=== PATIENT | male | born 1950 | race Caucasian/White ===

== ENCOUNTER 2021-04-03 16:51 | Observation (INO) | payer OTHER ==
[2021-04-03 17:53] VITALS: BMI 28.1
[2021-04-03] MEDS ORDERED: PNEUMOCOCCAL VACCINE 0.5 ML IMVAC ONE (18:00)
[2021-04-03] MEDS ORDERED: ACETAMINOPHEN 325 MG TABLET PO PRN (18:00)
[2021-04-03] MEDS ORDERED: ENOXAPARIN 40 MG/0.4 ML SQ SCH (18:00)
[2021-04-03] MEDS ORDERED: ONDANSETRON 4 MG (ODT) TAB PO PRN (18:00)
[2021-04-03] MEDS ORDERED: ONDANSETRON 4 MG/2 ML VIAL IV PRN (18:00)
[2021-04-03] MEDS ORDERED: POLYETHYL GLY 3350 17 GM/DOSE PO PRN (18:00)
[2021-04-03] MEDS ORDERED: DIPHENHYDRAMINE 25 MG TAB/CAP PO PRN (18:00)
[2021-04-03] MEDS ORDERED: INFLUENZA VACCINE (for 6+ mo) 0.5 ML DOSE IMVAC ONE (18:00)
[2021-04-03] MEDS ORDERED: LOPERAMIDE HCL 2 MG CAPSULE PO PRN (18:00)
[2021-04-03] MEDS ORDERED: NACHLORIDE 0.45% 1,000 ML IV SCH (18:00)
[2021-04-03 18:25] LABS: Absolute Lymphocytes (CBC) 2.4 K/uL (0.7-4.9); Hematocrit 41.6 % (39.6-49.0); Lymphocytes % 29.4 % (15.3-44.8); MPV 7.4 fL (7.6-11.3); RBC Red Blood Cell Count 4.49 M/uL (4.33-5.43)
[2021-04-03 18:43] LABS: Protime INR 0.99
[2021-04-03 19:11] LABS: Albumin 3.9 g/dL (3.4-5.0); Bilirubin Direct 0.1 mg/dL (0-0.2); Bilirubin Total 0.4 mg/dL (0.2-1.0); Phosphorus 3.4 mg/dL (2.5-4.9); Potassium 4.2 mmol/L (3.5-5.1); Protein, Total 7.3 g/dL (6.4-8.2); Thyroid Stimulating Hormone 1.53 uIU/mL (0.360-3.740)
--- NOTE | 2021-04-03 21:19 | RAD REPORT ---
EXAM DESCRIPTION: RAD - Chest Pa And Lat (2 Views) - 04/03/2021 9:00 pm CLINICAL HISTORY: abd pain Chest pain. COMPARISON: CHEST SINGLE VIEW dated 10/22/2008 FINDINGS: The lungs are clear. The heart is upper limit of normal in size. No displaced fractures. S mall hiatal hernia.
--- NOTE | 2021-04-03 21:19 | RAD REPORT ---
EXAM DESCRIPTION: CTAbdomen Pelvis W Contrast - 04/03/2021 9:06 pm CLINICAL HISTORY: Abdominal pain. abdominal pain COMPARISON: No comparisons TECHNIQUE: Biphasic CT imaging of the abdomen and pelvis was performed with 100 ml non-ionic IV cont rast. All CT scans are performed using dose optimization technique as appropriate and may include automated exposure control or mA/KV adjustment according to patient size. FINDINGS: The lung bases are clear.Small hiatal hernia. The liver, spleen, pancreas, adrenal glands and kidneys are within normal limits. Abdominal aortic en dograft noted. No bowel obstruction, free air, free fluid or abscess. The appendix is normal. Moderate stool is pre sent throughout the colon. No evidence of significant lymphadenopathy. Evidence of significant spinal canal stenosis at L4-5. IMPRESSION: Moderate retained stool throughout the colon. Significant spinal canal stenosis suspected at L4-5.
[2021-04-03] MEDS ORDERED: VENLAFAXINE HCL 75 MG TABLET PO SCH (22:00)
[2021-04-03] MEDS ORDERED: ZOLPIDEM TARTRATE 10 MG TABLET PO SCH (22:00)
[2021-04-03 22:11] LABS: Urine Appearance CLEAR (Clear); Urine Bilirubin NEGATIVE (Negative); Urine Blood NEGATIVE (Negative); Urine Color YELLOW (Yellow); Urine Glucose NEGATIVE (Negative); Urine Protein NEGATIVE (Negative); Urine pH 6.5 (5.0-7.0)
[2021-04-03 22:14] LABS: Urine Microscopic Reflex NO UMIC
[2021-04-04] MEDS: MORPHINE 15 MG IR TAB PO SCH ×2 (03:54)
[2021-04-04 05:44] LABS: Absolute Lymphocytes (CBC) 2.1 K/uL (0.7-4.9); Lymphocytes % 33.5 % (15.3-44.8); MPV 7.7 fL (7.6-11.3)
[2021-04-04 07:06] LABS: Potassium 3.8 mmol/L (3.5-5.1)
[2021-04-04] MEDS ORDERED: TRAZODONE 50 MG TABLET PO PRN (07:43)
[2021-04-04] MEDS ORDERED: lisinopriL 20 MG TAB PO SCH (09:00)
[2021-04-04 09:32] VITALS: BP 109/54; TEMP 97.2
[2021-04-04] MEDS ORDERED: INFLUENZA VACCINE (for 6+ mo) 0.5 ML DOSE IMVAC ONE (10:00)
[2021-04-04] MEDS ORDERED: PNEUMOCOCCAL VACCINE 0.5 ML IMVAC ONE (10:00)
--- NOTE | 2021-04-04 13:32 | P.DS ---
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 HE IS ON HEAVY NARCOTICS FROM THE PAIN DOCTOR AND TAKES DULCOLAX FOR CONSTIPATION. HE COMES WITH LOWER ABDOMEN PAIN THAT IS SEVERE. HE IS BENT OVER WHEN HE WALKS. HE HAS CONSTIPATION ON CT AND ALSO SEVERE L SPINE STENOSIS. HE DOES NOT WANT TO SEE NEUROSURGEON. HE WILL CONTINUE WITH PAIN DOCTORS. Vital Signs/Physical Exam: Temp Pulse Resp BP Pulse Ox 97.2 F 70 18 109/54 L 98 04/04/21 08:00 04/04/21 08:00 04/04/21 08:00 04/04/21 08:00 04/04/21 08:00 Laboratory Data at Discharge: WBC 6.20 K/uL (4.3-10.9) D 04/04/21 05:20 Hgb 12.9 g/dL (13.6-17.9) L 04/04/21 05:20 Hct 39.0 % (39.6-49.0) L 04/04/21 05:20 Plt Count 175 K/uL (152-406) 04/04/21 05:20 PT 11.4 SECONDS (9.5-12.5) 04/03/21 18:15 INR 0.99 04/03/21 18:15 APTT 34.0 SECONDS (24.3-36.9) 04/03/21 18:15 Sodium 138 mmol/L (136-145) 04/04/21 05:20 Potassium 3.8 mmol/L (3.5-5.1) 04/04/21 05:20 BUN 12 mg/dL (7-18) 04/04/21 05:20 Creatinine 1.16 mg/dL (0.55-1.3) 04/04/21 05:20 Glucose 103 mg/dL (74-106) 04/04/21 05:20 Phosphorus 3.4 mg/dL (2.5-4.9) 04/03/21 18:15 Total Bilirubin 0.4 mg/dL (0.2-1.0) 04/03/21 18:15 AST 20 U/L (15-37) 04/03/21 18:15 ALT 27 U/L (12-78) 04/03/21 18:15 Alkaline Phosphatase 70 U/L (45-117) 04/03/21 18:15 Home Medications: Lisinopril [Zestril] 20 mg PO DAILY 04/03/21 Morphine Ir [MSIR (Morphine Sulfate IR)] 30 mg PO Q6HR 04/03/21 Trazodone [Desyrel] 100 mg PO PRN PRN 04/03/21 Venlafaxine HCl 75 mg PO BID 04/03/21 Zolpidem Tartrate 10 mg PO DAILY 04/03/21 Followup: Lucian Meza MD [ACTIVE - CAN ADMIT] - (Call to schedule follow up appointment.)
[2021-04-04 16:09] LABS: Magnesium 1.7
[2021-04-07 13:47] LABS: Magnesium 1.7
[2021-04-08 15:07] LABS: Vitamin D 1,25-Dihydroxy Total 42 pg/mL (18-72); Vitamin D,1,25-OH2, D2 <8 pg/mL
== END 2021-04-04 10:45 | disposition home or self-care (01) ==
LOC: 2ND 16:51
PROVIDERS: ADMIT Internal Medicine; ATTEND Internal Medicine
DX: R10.30 Lower abdominal pain, unspecified (principal); K59.09 Other constipation; M48.02 Spinal stenosis, cervical region; M48.061 Spinal stenosis, lumbar region without neurogenic claudication; M54.16 Radiculopathy, lumbar region; Z79.899 Other long term (current) drug therapy
CPT/HCPCS: 87040; 85025 ×2; 80048 ×2; 36415 ×2; 83735 ×2; 84100; 85610; 80076; 85730; 82652; 84443; 81003; 82607; 74177; 71046; Q9967; J1650; G0379; G0378 ×2

== ENCOUNTER 2022-05-03 14:54 | Inpatient (IN) | payer OTHER ==
[2022-05-03] MEDS ORDERED: ASPIRIN 81 MG CHEWABLE TABLET ONE (15:14)
[2022-05-03 15:23] LABS: Absolute Lymphocytes (CBC) 1.9 K/uL (0.7-4.9); Hematocrit 41.1 % (39.6-49.0); Lymphocytes % 26.7 % (15.3-44.8); MCV 95.3 fL (80-100); MPV 8.3 fL (7.6-11.3); RBC Red Blood Cell Count 4.31 M/uL (4.33-5.43)
[2022-05-03 15:40] LABS: Bilirubin Direct 0.1 mg/dL (0-0.2); Bilirubin Total 0.5 mg/dL (0.2-1.0); Magnesium 1.9 mg/dL (1.6-2.4); Potassium 3.9 mmol/L (3.5-5.1); Protein, Total 7.4 g/dL (6.4-8.2); Troponin High Sensitivity 28.4 pg/mL (<58.9)
--- NOTE | 2022-05-03 16:41 | ER ---
Nurse's Notes [facility] Name: Paolo Richards Age: 72 yrs Sex: Male : 1950 Arrival Date: 05/03/2022 Time: 14:55 Bed 19 Private MD: Eduin Stafford Diagnosis: Chest pain, unspecified;Hypertensive Urgency Presentation: 05/03 15:01 Chief complaint: Patient states: Midsternal CP, radiates to shoulder and back, started jl7 last night, feels like pressure. Coronavirus screen: At this time, the client does not indicate any symptoms associated with coronavirus-19. Ebola Screen: No symptoms or risks identified at this time. Initial Sepsis Screen: Does the patient meet any 2 criteria? No. Patient's initial sepsis screen is negative. Does the patient have a suspected source of infection? No. Patient's initial sepsis screen is negative. Risk Assessment: Do you want to hurt yourself or someone else? Patient reports no desire to harm self or others. Onset of symptoms was May 02, 2022. 15:01 Method Of Arrival: Ambulatory jl7 15:01 Acuity: SANDRA 2 jl7 Triage Assessment: 15:03 General: Appears in no apparent distress. uncomfortable, Behavior is calm, cooperative, jl7 appropriate for age. Pain: Complains of pain in chest Pain radiates to back Pain currently is 7 out of 10 on a pain scale. Cardiovascular: Patient's skin is warm and dry. Respiratory: Reports shortness of breath at rest Airway is patent Respiratory effort is even, unlabored, Respiratory pattern is regular, symmetrical. Derm: Skin is pink, warm \T\ dry. Historical: - Allergies: 15:03 No Known Allergies; jl7 - Home Meds: 15:03 Lisinopril Oral [Active]; Trazodone Oral [Active]; morphine 30 mg Oral CM24 [Active]; jl7 venlafaxine oral [Active]; - PMHx: 15:03 Depressive disorder; Chronic pain; Hypertensive disorder; jl7 - PSHx: 15:03 spinal stimulator; jl7 - Immunization history:: Client reports receiving the 2nd dose of the Covid vaccine. - Social history:: Smoking status: Patient reports the use of cigarette tobacco products. Screenin:00 [facility] ED Fall Risk Assessment (Adult) History of falling in the last 3 months, jl7 including since admission No falls in past 3 months (0 pts) Confusion or Disorientation No (0 pts) Intoxicated or Sedated No (0 pts) Impaired Gait No (0 pts) Mobility Assist Device Used No (0 pt) Altered Elimination No (0 pt) Score/Fall Risk Level 0 - 2 = Low Risk Oriented to surroundings, Maintained a safe environment. Abuse screen: Denies threats or abuse. Denies injuries from another. Nutritional screening: No deficits noted. Tuberculosis screening: No symptoms or risk factors identified. Assessment: 15:30 General: See triage. jl7 15:30 Pain: Complains of pain in chest Pain radiates to back Pain currently is 7 out of 10 on [facility] a pain scale. Quality of pain is described as pressure, Pain began 1 day ago. 16:48 Reassessment: Dr. Hamm at bedside assessing pt for admission. jl7 18:13 Reassessment: Pt moved to ER room 19 into hospital bed for comfort. Report given to 7 JAMARI Herrera. Vital Signs: 15:01 BP 191 / 84; Pulse 63; Resp 17; Temp 97.9; Pulse Ox 99% ; Weight 81.65 kg; Height 5 ft. jl7 6 in. (167.64 cm); Pain 7/10; 16:15 BP 155 / 75; Pulse 58; Resp 19; Pulse Ox 97% ; jl7 17:00 BP 164 / 68; Pulse 60; Resp 17; Pulse Ox 98% ; jl7 15:01 Body Mass Index 29.05 (81.65 kg, 167.64 cm) jl7 ED Course: 14:55 Patient arrived in ED. am2 14:55 Eduin Stafford DO is Private Physician. am2 14:55 [facility]. en 14:55 Jean Franz MD is Attending Physician. en 15:01 Yesenia Watkins RN is Primary Nurse. jl7 15:03 Triage completed. jl7 15:03 Arm band placed on right wrist. EKG completed in triage. Results shown to . jl7 15:14 Inserted saline lock: 20 gauge in left antecubital area, using aseptic technique. Blood ss collected. 15:49 Basic Metabolic Panel Sent. jl7 15:49 CBC with Diff Sent. jl7 15:49 LFT's Sent. jl7 15:49 Magnesium Sent. jl7 15:49 Troponin HS Sent. jl7 16:00 Patient has correct armband on for positive identification. Placed in gown. Bed in low jl7 position. Call light in reach. Side rails up X2. Client placed on continuous cardiac and pulse oximetry monitoring. NIBP monitoring applied. Warm blanket given. 16:00 No provider procedures requiring assistance completed. Initial lab(s) drawn, by ED jl7 staff, sent to lab. EKG done, by ED staff, reviewed by Jean Franz MD COVID swab sent to lab. Patient maintains SpO2 saturation greater than 95% on room air. 16:40 Don Hamm MD is Hospitalizing Provider. en 17:26 SARS RAPID Sent. jl7 19:38 Primary Nurse role handed off by Yesenia Watkins RN jl7 20:18 Sanaz Alas, JAMARI is Primary Nurse. ke1 20:41 Patient admitted, IV remains in place. vc1 Administered Medications: 15:49 Drug: Aspirin Chewable Tablet 324 mg Route: PO; jl7 19:35 Follow up: Response: No adverse reaction jl7 16:36 CANCELLED (BP improvedd): hydrALAZINE 10 mg IVP once en Medication: 19:35 VIS not applicable for this client. jl7 Outcome: 16:40 Decision to Hospitalize by Provider. en 20:41 Admitted to Tele accompanied by tech, via wheelchair, room 409, Report called to 1 JAMARI Thomas 20:41 Condition: good 20:41 Instructed on the need for admit. 20:41 Patient left the ED. vc1 Signatures: Priscilla Oconnor RN JAMARI Yesenia Watkins, RN RN jl7 Chelsey Mccall Vanessa, RN RN vc1 Sanaz Alas RN RN Diana Sánchez PA PA en
--- NOTE | 2022-05-03 16:41 | EDPHYS ---
Physician Documentation [facility] Name: Paolo Richards Age: 72 yrs Sex: Male : 1950 Arrival Date: 05/03/2022 Time: 14:55 Bed 19 Private MD: Eduin Stafford ED Physician Jean Franz HPI: 05/03 15:09 This 72 yrs old Male presents to ER via Ambulatory with complaints of Chest Pain. en 15:09 72-year-old male with history of hypertension, spinal cord injury with nerve en stimulator, and abdominal aortic aneurysm repair presents to ED with substernal chest pressure radiating through to the back of the shoulders since yesterday. He reports shortness of breath with dyspnea on exertion no orthopnea, peripheral edema. He has a spinal cord injury that has left him partially paralyzed from the waist down with minimal use of legs, so he lacks sensation but denies asymmetrical lower extremities. Historical: - Allergies: 15:03 No Known Allergies; jl7 - Home Meds: 15:03 Lisinopril Oral [Active]; Trazodone Oral [Active]; morphine 30 mg Oral CM24 [Active]; jl7 venlafaxine oral [Active]; - PMHx: 15:03 Depressive disorder; Chronic pain; Hypertensive disorder; jl7 - PSHx: 15:03 spinal stimulator; jl7 - Immunization history:: Client reports receiving the 2nd dose of the Covid vaccine. - Social history:: Smoking status: Patient reports the use of cigarette tobacco products. ROS: 15:09 Constitutional: Negative for fever, chills, and weight loss, Cardiovascular: Substernal en chest pain radiating to the back and shoulders Respiratory: + Shortness of breath with dyspnea exertion. Does not feel that his lungs expand fully. Exam: 15:09 Constitutional: This is a well developed, well nourished patient who is awake, alert, en and in no acute distress. 15:09 Cardiovascular: Rate: normal, Rhythm: regular, Pulses: no pulse deficits are appreciated, Heart sounds: murmur, 2/6 systolic murmur at left upper sternal border, Edema: is not appreciated. 15:09 Respiratory: the patient does not display signs of respiratory distress, Respirations: normal, Breath sounds: are clear throughout, no rales, rhonchi, no wheezing. 15:09 Abdomen/GI: Bowel sounds: normal, Palpation: abdomen is soft and non-tender. 15:09 Musculoskeletal/extremity: Partially paralyzed in the waist down so no range of motion of the lower extremities. But calves supple without asymmetry or palpable cords. 2+ DP, PT pulses. Vital Signs: 15:01 BP 191 / 84; Pulse 63; Resp 17; Temp 97.9; Pulse Ox 99% ; Weight 81.65 kg; Height 5 ft. jl7 6 in. (167.64 cm); Pain 7/10; 16:15 BP 155 / 75; Pulse 58; Resp 19; Pulse Ox 97% ; jl7 17:00 BP 164 / 68; Pulse 60; Resp 17; Pulse Ox 98% ; jl7 15:01 Body Mass Index 29.05 (81.65 kg, 167.64 cm) jl7 MDM: 15:09 Differential diagnosis: ACS, CHF, pericarditis, dysrhythmia, aneurysm, PE. Data en reviewed: vital signs, nurses notes, lab test result(s), EKG, radiologic studies, EKG with normal sinus rhythm, normal intervals, right axis deviation no STEMI. Consideration of Admission/Observation Patient was admitted/placed on observation. Scoring Tools HEART Score: History: Age: Risk Factors: 1 or 2 risk factors (1), Total Score = 4. 15:16 Patient medically screened. en 16:36 ED course: Patient's blood pressure improved but still with intermittent substernal en chest pain. HEART score of 4. Will admit for risk stratification and BP optimization. Accepted by Dr Carrera, Hospitalist.. 05/03 14:56 Order name: Basic Metabolic Panel en 05/03 14:56 Order name: CBC with Diff en 05/03 14:56 Order name: LFT's en 05/03 14:56 Order name: Magnesium en 05/03 14:56 Order name: Troponin HS en 05/03 14:56 Order name: XRAY Chest (1 view) en 05/03 14:56 Order name: EKG; Complete Time: 14:57 05/03 14:56 Order name: Cardiac monitoring; Complete Time: 15:05 05/03 14:56 Order name: EKG - Nurse/Tech; Complete Time: 15:05 05/03 14:56 Order name: IV Saline Lock; Complete Time: 15:14 en 05/03 14:56 Order name: Labs collected and sent; Complete Time: 15:14 en 05/03 14:56 Order name: O2 Per Protocol; Complete Time: 15:05 en 05/03 14:56 Order name: O2 Sat Monitoring; Complete Time: 15:05 en 05/03 15:30 Order name: CBC with Automated Diff; Complete Time: 16:08 EDMS 05/03 15:40 Order name: Basic Metabolic Panel; Complete Time: 16:08 EDMS 05/03 15:40 Order name: Liver (Hepatic) Function; Complete Time: 16:08 EDMS 05/03 15:40 Order name: Troponin High Sensitivity; Complete Time: 16:08 EDMS 05/03 15:40 Order name: Magnesium; Complete Time: 16:08 EDMS 05/03 16:41 Order name: SARS RAPID en 05/03 17:04 Order name: RAD EDMS 05/03 17:45 Order name: SARS-COV-2 Antigen Rapid EDMS 05/03 18:18 Order name: Troponin High Sensitivity EDMS 05/03 18:19 Order name: Troponin High Sensitivity EDMS 05/03 18:19 Order name: Lipid Profile EDMS Administered Medications: 15:49 Drug: Aspirin Chewable Tablet 324 mg Route: PO; jl7 19:35 Follow up: Response: No adverse reaction jl7 16:36 CANCELLED (BP improvedd): hydrALAZINE 10 mg IVP once en Disposition Summary: 05/03/22 16:40 Hospitalization Ordered Hospitalization Status: Inpatient Admission en Provider: Don Hamm [facility] Condition: Fair en Problem: new en Symptoms: are unchanged en Bed/Room Type: Standard en Room Assignment: 409(05/03/22 20:12) ke1 Diagnosis - Chest pain, unspecified en - Hypertensive Urgency en Forms: - Medication Reconciliation Form en - SBAR form en Signatures: Dispatcher [employer] EDKorina Montoya RN RN Yesenia Larose RN RN jl7 Sanaz Alas RN RN ke1 Diana Ambrocio PA PA en Corrections: (The following items were deleted from the chart) 16:36 16:32 hydrALAZINE 10 mg IVP once ordered. en en 19:22 16:40 en cg 20:12 19:22 430 ke1
[2022-05-03] MEDS ORDERED: MORPHINE 4 MG/ML SYR IV PRN (17:03)
[2022-05-03] MEDS ORDERED: NITROGLYCERIN 0.4 MG/TAB SL PRN (17:03)
--- NOTE | 2022-05-03 17:03 | RAD REPORT ---
EXAM DESCRIPTION: Carl Single View05/03/2022 4:55 pm CLINICAL HISTORY: Chest pain COMPARISON: 2021 FINDINGS: The lungs appear clear of acute infiltrate. The heart is normal size IMPRESSION: No acute abnormalities displayed
--- NOTE | 2022-05-03 17:13 | P.HP ---
Certification for Inpatient With expected LOS: >2 Midnights Practitioner: I am a practitioner with admitting privileges, knowledge of patient current condition, hospital course, and medical plan of care. Services: Services provided to patient in accordance with Admission requirements found in Title 42 Section 412.3 of the Code of Federal Regulations Patient History Date of Service: 05/03/22 Reason for admission: Unstable angina History of Present Illness: Patient is 72 years of age started experiencing chest pressure radiating to his left shoulder started on Wednesday became progressively worse more prominent with exertion came here to the emergency room prior history of coronary artery disease and active smoker denies any shortness of breath Allergies No Known Allergies Allergy (Unverified 04/03/21 17:13) Home Medications: Lisinopril [Zestril] 20 mg PO DAILY 04/03/21 Morphine Ir [MSIR (Morphine Sulfate IR)] 30 mg PO Q6HR 04/03/21 Trazodone [Desyrel] 100 mg PO PRN PRN 04/03/21 Venlafaxine HCl 75 mg PO BID 04/03/21 Zolpidem Tartrate 10 mg PO DAILY 04/03/21 - Past Medical/Surgical History Diabetic: No -: Cervical Myelopathy -: Hypertension - Social History Alcohol use: No CD- Drugs: No Caffeine use: No Review of Systems 10-point ROS is otherwise unremarkable Physical Examination - Vital Signs Temperature: 97.9 F Blood Pressure: 191/84 Pulse: 63 Respirations: 17 Pulse Ox (%): 99 - Physical Exam General: Alert, In no apparent distress HEENT: Atraumatic Neck: Supple Respiratory: Clear to auscultation bilaterally Cardiovascular: No edema, Normal S1 S2 Gastrointestinal: Normal bowel sounds, Soft and benign Musculoskeletal: No clubbing, No swelling Neurological: Normal speech (Patient has weakness of his extremities left side more so than the right side he is able to stand) - Studies Laboratory Data (last 24 hrs) 05/03/22 15:07: WBC 7.30, Hgb 13.7, Hct 41.1, Plt Count 178 05/03/22 15:07: Sodium 140, Potassium 3.9, BUN 13, Creatinine 0.92, Glucose 152 H, Magnesium 1.9, Total Bilirubin 0.5, AST 24, ALT 25, Alkaline Phosphatase 78 Assessment and Plan - Problems (Diagnosis) (1) Unstable angina Current Visit: Yes Status: Acute Plan: Patient is 72 years of age active smoker history of hypertension admitted with acute onset of chest pain suggestive of unstable angina is a very classic story of cardiac chest pain that started on Wednesday so far there is no acute changes on the EKG recent troponin is negative we will continue to monitor while we will anticoagulate we will start him on a statin beta-baylee control blood pressure cardiology consult labs reviewed chest x-ray is normal Discharge Plan: Home Plan to discharge in: 48 Hours - Advance Directives Does patient have a Living Will: No Does patient have a Durable POA for Healthcare: No
[2022-05-03] MEDS ORDERED: FUROSEMIDE 20 MG/ 2ML VIAL IV ONE (17:18)
--- NOTE | 2022-05-03 17:25 | P.HP ---
Certification for Inpatient With expected LOS: >2 Midnights Practitioner: I am a practitioner with admitting privileges, knowledge of patient current condition, hospital course, and medical plan of care. Services: Services provided to patient in accordance with Admission requirements found in Title 42 Section 412.3 of the Code of Federal Regulations Patient History Date of Service: 05/03/22 Allergies No Known Allergies Allergy (Unverified 04/03/21 17:13) Home Medications: Lisinopril [Zestril] 20 mg PO DAILY 04/03/21 Morphine Ir [MSIR (Morphine Sulfate IR)] 30 mg PO Q6HR 04/03/21 Trazodone [Desyrel] 100 mg PO PRN PRN 04/03/21 Venlafaxine HCl 75 mg PO BID 04/03/21 Zolpidem Tartrate 10 mg PO DAILY 04/03/21 - Past Medical/Surgical History Diabetic: No -: Cervical Myelopathy - Social History Alcohol use: No CD- Drugs: No Caffeine use: No Physical Examination - Studies Laboratory Data (last 24 hrs) 05/03/22 15:07: WBC 7.30, Hgb 13.7, Hct 41.1, Plt Count 178 05/03/22 15:07: Sodium 140, Potassium 3.9, BUN 13, Creatinine 0.92, Glucose 152 H, Magnesium 1.9, Total Bilirubin 0.5, AST 24, ALT 25, Alkaline Phosphatase 78 Assessment and Plan - Advance Directives Does patient have a Living Will: No Does patient have a Durable POA for Healthcare: No
[2022-05-03 17:44] LABS: SARS-CoV-2 Antigen Rapid Res Negative (Negative)
[2022-05-03] MEDS: METOPROLOL TARTRATE 5 MG/5 ML INJ IV SCH ×3 (18:05→19:30)
[2022-05-03 18:18] LABS: Troponin High Sensitivity 29.8 pg/mL (<58.9)
[2022-05-03] MEDS ORDERED: FUROSEMIDE 20 MG/ 2ML VIAL ONE (18:55)
[2022-05-03] MEDS ORDERED: METOPROLOL TAR 25 MG TAB ONE (18:55)
[2022-05-03] MEDS: METOPROLOL TAR 25 MG TAB PO SCH (19:05)
[2022-05-03] MEDS ORDERED: METOPROLOL TARTRATE 5 MG/5 ML INJ IV ONE (19:22)
[2022-05-03] MEDS ORDERED: ENOXAPARIN 80 MG/0.8 ML SQ ONE (19:23)
[2022-05-03] MEDS: ENOXAPARIN 80 MG/0.8 ML SQ SCH (19:30)
[2022-05-03] MEDS ORDERED: METOPROLOL TAR 50 MG TAB PO SCH (21:00)
[2022-05-03 21:46] VITALS: BMI 29.0
[2022-05-04] MEDS ORDERED: HYDRALAZINE HCL 20 MG/ML VIAL IV PRN (06:38)
[2022-05-04] MEDS: METOPROLOL TAR 25 MG TAB PO SCH ×3 (08:58→21:00)
[2022-05-04] MEDS: lisinopriL 20 MG TAB PO SCH ×2 (08:58→10:42)
[2022-05-04] MEDS: ASPIRIN EC 81 MG TAB PO SCH ×2 (08:58→10:41)
[2022-05-04] MEDS ORDERED: lisinopriL 10 MG TAB PO SCH (09:00)
[2022-05-04] MEDS: ENOXAPARIN 80 MG/0.8 ML SQ SCH ×2 (09:04→21:10)
--- NOTE | 2022-05-04 09:27 | P.PN ---
Date of Service: 05/04/22 Subjective: Feels heavy weight on chest headaches reports pain comes in waves ~"every hour" ROS: 10 point ROS as noted above, otherwise negative Physical Exam: GEN: Alert, oriented, NAD HEENT: Normal conjunctiva, sclera anicteric CV: 3/6 systolic murmer, no edema Pulm: Nonlabored respirations on room air ABD: Soft,mild tenderness, nondistended, Hyperactive MSK: No joint tenderness Integumentary: No rashes Neuro: Normal speech, normal affect Problem List: Unstable angina classic story, worse with exertion stress test today Cardio consult troponin negative x5 X-ray negative Continue statin beta baylee
--- NOTE | 2022-05-04 16:39 | EKG ---
Test Date: 2022-05-03 Test Time: 15:00:16 Wildlife Officer: SUSAN MEASUREMENT RESULTS: Intervals: Rate: 64 ME: 176 QRSD: 78 QT: 406 QTc: 418 [place]: P: 62 ME: 176 QRS: 34 T: 60 INTERPRETIVE STATEMENTS: Normal sinus rhythm Nonspecific ST abnormality Abnormal ECG Compared to ECG 10/22/2008 14:28:29 ST (T wave) deviation now present Left ventricular hypertrophy no longer present T-wave abnormality no longer present Electronically Signed On 05-04-22 16:36:46 [employer]PERATION by Juan Up
--- NOTE | 2022-05-04 22:23 | CON ---
Date of Consultation: 05/04/2022 Reason For Consultation: Chest pain. History Of Present Illness: This 72-year-old male presented to the emergency room with chest pressur e radiating to his left shoulder and more noticeable with exertion. Denies having any active chest p ain at the present time, but his pain has been coming on and off recently. Past Medical History: Hypertension. Medications: Refer to reconciliation sheet for detailed list. Allergies: NO KNOWN DRUG ALLERGIES. Family History: No premature coronary artery disease or cancer. Social History: He is an active smoker. Does not drink or use any drugs. Review of Systems: All systems reviewed and they were negative except as mentioned in HPI. Physical Examination: Vital Signs: Reviewed. Head And Neck: Pupils are equal and reactive to light. Intact eye movements. No JVD. No cervical lymphadenopathy. Neck is supple. Thyroid is not enlarged. Lungs: Clear to auscultation bilaterally. No rhonchi, wheezing, or crackles. No accessory muscle u se. Heart: Regular rate and rhythm. No extra sounds. Abdomen: Soft, nontender. Bowel sounds positive. No organomegaly. No masses or hernia. No rigidi ty or rebound. Extremities: No edema, clubbing, or cyanosis. Intact pulses. Skin: No rash. Neurologic: Alert, awake, and oriented x3. No acute focal deficits appreciated. Investigations: Troponins x5 were negative. BUN 13, creatinine 0.92, hemoglobin 13.7. Assessment/recommendation: 1.Chest pain, has some typical features; however, his cardiac enzymes are negative and this pain cou ld be musculoskeletal. From Cardiology standpoint, this patient can be released and we will plan for outpatient stress test. 2.Hypertension. Blood pressure is controlled. Thank you for the consult. /ANJUM Voice ID: [id number] Report ID: [id number]
[2022-05-05] MEDS ORDERED: REGADENOSON 0.4 MG/5 ML SYR IV ONE ×2 (07:16→16:18)
--- NOTE | 2022-05-05 07:35 | ECHO ---
HEIGHT: 5 ft 6 in WEIGHT: 180 lb 0 oz DATE OF STUDY: 05/04/[address]: Don Hamm MD 2-DIMENSIONAL: YES M.MODE: YES DOPPLER: YES COLOR FLOW: YES TDS: GENERAL HELPER PORTABLE: YES DEFINITY: NO BUBBLE STUDY: NO DIAGNOSIS: CHEST PAIN CARDIAC HISTORY: CATHERIZATION: NO SURGERY: NO PROSTHETIC VALVE: NO PACEMAKER: NO MEASUREMENTS (cm) DIASTOLIC (NORMALS) SYSTOLIC (NORMALS) IVSd 1.2 (0.6-1.2) LA Diam 2.3 (1.9-4.0) LVEF 55-60% LVIDd 3.5 (3.5-5.7) LVIDs 2.6 (2.0-3.5) %FS 26% LVPWd 1.2 (0.6-1.2) Ao Diam 2.7 (2.0-3.7) 2 DIMENSIONAL ASSESSMENT: RIGHT ATRIUM: NORMAL LEFT ATRIUM: NORMAL RIGHT VENTRICLE: NORMAL LEFT VENTRICLE: NORMAL TRICUSPID VALVE: NORMAL MITRAL VALVE: MILD MR PULMONIC VALVE: NORMAL AORTIC VALVE: MILD AI PERICARDIAL EFFUSION: NONE AORTIC ROOT: NORMAL LEFT VENTRICULAR WALL MOTION: NORMAL DOPPLER/COLOR FLOW: SEE BELOW. COMMENTS: 1. NORMAL LEFT VENTRICULAR EJECTION FRACTION 55-60%. 2. NORMAL WALL MOTION. 3. NORMAL DIASTOLIC FUNCTION. 4. MILD MITRAL REGURGITATION. 5. MILD AORTIC REGURGITATION. TECHNOLOGIST: Madhu ANN
[2022-05-05] MEDS: lisinopriL 20 MG TAB PO SCH (09:00)
[2022-05-05] MEDS: ASPIRIN EC 81 MG TAB PO SCH (09:00)
[2022-05-05] MEDS: ENOXAPARIN 80 MG/0.8 ML SQ SCH ×2 (09:00→17:07)
[2022-05-05] MEDS: METOPROLOL TAR 25 MG TAB PO SCH ×2 (09:00→22:05)
--- NOTE | 2022-05-05 09:52 | RAD REPORT ---
EXAM DESCRIPTION: NM - Rest Stress Cardiac Imaging - 05/05/2022 9:41 am CLINICAL HISTORY: Unstable angina COMPARISON: None. TECHNIQUE: The patient was administered 11.3 mCi of Tc 99m Sestamibi prior to resting SPECT imaging of the heart. The patient was then administered 30.9 mCi of Tc 99m Sestamibi following exercise or ph armacologic stress. Multiplanar SPECT images were reviewed. FINDINGS: Moderate area of diminished radiotracer activity present within the left ventricular myoca rdium on rest images. Stress images demonstrate a more normal appearance to the inferior left ventricular myocardium. The left ventricular ejection fraction equals 45% IMPRESSION: Moderate apparent reversible perfusion defect involving the inferior left ventricular my ocardium. Although some of this may be due to attenuation from the diaphragm there probably is stress -induced ischemia present
[2022-05-05] MEDS ORDERED: LIDOCAINE 1% 20 ML MDV ONE (15:37)
[2022-05-05] MEDS ORDERED: MIDAZOLAM HCL 2 MG/2 ML INJ ONE (15:38)
[2022-05-05] MEDS ORDERED: FENTANYL CITR 100 MCG/2 ML ONE ×2 (15:38→16:35)
[2022-05-05] MEDS ORDERED: ATROPINE SULF 1 MG/10 ML SYR IV ONE (15:38)
[2022-05-05] MEDS ORDERED: HEPARIN 10,000 UNIT/10 ML VIAL IV ONE (15:38)
[2022-05-05] MEDS ORDERED: HEPA 1000U/500MLS 2,000 UNIT/1,000 ML BAG IV ONE (15:39)
[2022-05-05] MEDS ORDERED: NA CHLORIDE 0.9% 500 ML ONE (15:45)
[2022-05-05] MEDS ORDERED: CLOPIDOGREL 75 MG TABLET ONE (16:27)
[2022-05-05] MEDS ORDERED: ASPIRIN 325 MG TAB ONE (16:27)
[2022-05-05] MEDS ORDERED: TICAGRELOR 90 MG TABLET PO ONE (16:33)
[2022-05-05] MEDS ORDERED: HYDRALAZINE HCL 20 MG/ML VIAL ONE (16:40)
--- NOTE | 2022-05-05 18:40 | P.PN ---
Subjective Date of Service: 05/05/22 Chief Complaint: Unstable angina Patient underwent cardiac cath today. He denies any chest pain. Physical Examination - Vital Signs Temperature: 97.0 F Blood Pressure: 161/77 Pulse: 62 Respirations: 16 Pulse Ox (%): 95 Assessment And Plan - Plan Physical Exam: GEN: Alert, oriented, NAD HEENT: Normal conjunctiva, sclera anicteric CV: 3/6 systolic murmer, no edema, normal S1/S2 Pulm: Nonlabored respirations on room air, clear to auscultation. ABD: Soft, nontender, nondistended. MSK: No joint tenderness Integumentary: No rashes Neuro: Normal speech, normal affect Problem List: Unstable angina Hypertension Plan: Stress test showed reversible ischemia Status post cardiac catheterization today. Patient noted to have significant coronary artery disease. Dr. Up placed cardiac stent. He is planned for another staged cardiac cath on . Continue aspirin, statin, beta baylee. Patient also started on Brilinta. Continue lisinopril for hypertension. Echocardiogram is unremarkable.
[2022-05-05] MEDS: TICAGRELOR 90 MG TABLET PO SCH (22:05)
[2022-05-05] MEDS: ATORVASTATIN 40 MG TAB PO SCH (22:05)
[2022-05-06 06:28] LABS: Potassium 3.5 mmol/L (3.5-5.1)
--- NOTE | 2022-05-06 07:44 | TREADPHA ---
DX: UNSTABLE ANGINA Date of Study: 05/05/2022 Ht: 5' 6 " Wt: 180 lb 0 oz Consulting Physician: JOSHUA MEDICATIONS: ASPIRIN, LOVENOX, APRESOLINE, PRINIVIL, LOPRESSOR, MORPHINE, NITROSTAT HISTORY: 72 YEAR OLD MALE WITH COMPLIANTS OF CHEST PAIN. HISTORY OF HYPERTENSION, DEPRESSION. PATIENT SMOKES HALF A PACK DAILY, NON DRINKER. PHYSICIAL EXAMINATION: RESTING B.P.: 132/78 RESTING H.R.: 58 RESTING EKG: NORMAL SINUS RHYTHM PROTOCOL: PHARMACOLOGIC EXERCISE TIME: 3:30 B.P. AT PEAK STRESS: 113/76 IMPRESSION: LEXISCAN INJECTED, FOLLOWED BY CARDIOLITE PER PROTOCOL. SEE NUCLEAR MEDICINE REPORT. NO SUPRAVENTRICULAR TACHYCARIA, VENTRICULAR TACHYCARDIA, PREMATURE ATRIAL COMPLEXES. PATIENT HAS OCCASIONAL PREMATURE VENTRICULAR COMPLEXES. PATIENT REPORTS NO CHEST PAIN. NO ELECTROCARDIOGRAM CHANGES WITH LEXISCAN.
[2022-05-06] MEDS: ENOXAPARIN 80 MG/0.8 ML SQ SCH (08:43)
[2022-05-06] MEDS: VENLAFAXINE HCL 75 MG TABLET PO SCH (08:43)
[2022-05-06] MEDS: TICAGRELOR 90 MG TABLET PO SCH ×2 (08:43→20:53)
[2022-05-06] MEDS: lisinopriL 20 MG TAB PO SCH ×2 (08:44→12:18)
[2022-05-06] MEDS: ASPIRIN EC 81 MG TAB PO SCH (08:44)
[2022-05-06] MEDS: METOPROLOL TAR 25 MG TAB PO SCH ×2 (08:44→20:51)
--- NOTE | 2022-05-06 17:12 | P.PN ---
Subjective Date of Service: 05/06/22 Chief Complaint: Unstable angina Patient has no new complaint He denies any chest pain or shortness of breath. Physical Examination - Vital Signs Temperature: 97.6 F Blood Pressure: 139/69 Pulse: 62 Respirations: 16 Pulse Ox (%): 99 Assessment And Plan - Plan Physical Exam: GEN: Alert, oriented, NAD HEENT: Normal conjunctiva, sclera anicteric CV: 3/6 systolic murmer, no edema, normal S1/S2 Pulm: Nonlabored respirations on room air, clear to auscultation. ABD: Soft, nontender, nondistended. MSK: No joint tenderness Integumentary: No rashes Neuro: Normal speech, normal affect Problem List: Unstable angina Hypertension Plan: Stress test showed reversible ischemia Status post cardiac catheterization today. Patient noted to have significant coronary artery disease. Dr. Up placed cardiac stent. He is planned for another cardiac cath tomorrow. Continue aspirin, Brilinta, statin, beta baylee. Continue lisinopril for hypertension. Echocardiogram is unremarkable.
--- NOTE | 2022-05-06 20:38 | PN ---
Date of Progress Note: 05/05/2022 Subjective: Seen by bedside. Doing well. Stress test came back positive for inferior ischemia. No further resting chest pain. Review of Systems: No resting chest pain. No nausea, vomiting, or diarrhea. No abdominal pain. No dysuria, polyuria, or urinary urgency. All other systems reviewed, they were negative. Physical Examination: Vital Signs: Reviewed. Head And Neck: Pupils are equal and reactive to light. Intact eye movements. No JVD. No cervical lymphadenopathy. Neck is supple. Thyroid is not enlarged. Lungs: Clear to auscultation bilaterally. No rhonchi, wheezing, or crackles. No accessory muscle u se. Heart: Regular rate and rhythm. No extra sounds. Abdomen: Soft, nontender. Bowel sounds positive. No organomegaly. No masses or hernia. No rigidi ty or rebound. Extremities: No edema, clubbing, or cyanosis. Intact pulses. Skin: No rash. Neurologic: Alert, awake, and oriented x3. No acute focal deficit was appreciated. Investigations: BUN 21, creatinine 1.06, and hemoglobin 13.6. Assessment And Recommendation: 1.Unstable angina. He is n.p.o., plan for coronary angiogram today and PCI as indicated. 2.Hypertension. Blood pressure is controlled. 3.Dyslipidemia. I recommend to start Lipitor 40 mg q.h.s. SR/MODL Voice ID: [id number] Report ID: [id number]
[2022-05-06] MEDS: ATORVASTATIN 40 MG TAB PO SCH (20:51)
--- NOTE | 2022-05-06 20:53 | PN ---
Date of Progress Note: 05/06/2022 Subjective: Seen by bedside. Doing well. No chest pain. Review of Systems: No chest pain, shortness of breath, orthopnea, cough, nausea, vomiting, or diarrhea. All other syste ms reviewed, they were negative. Physical Examination: Vital Signs: Reviewed. Head and Neck: Pupils are equal, reactive to light. Intact eye movements. No JVD. No cervical lym phadenopathy. Neck is supple. Thyroid is not enlarged. Lungs: Clear to auscultation bilaterally. No rhonchi, wheezing, or crackles. No accessory muscle u se. Heart: Regular rate and rhythm. No extra sounds. Abdomen: Soft, nontender. Bowel sounds positive. No organomegaly. No masses or hernia. No rigidi ty or rebound. Extremities: No edema, clubbing, or cyanosis. Intact pulses. Skin: No rash. Neurologic: Alert, awake, and oriented x3. No acute focal deficit was appreciated. Lymph Nodes: No cervical or axillary lymphadenopathy. Investigations: Labs reviewed. Assessment And Recommendation: 1.Unstable angina. Culprit was proximal RCA was 99%, status post successful PCI yesterday. He has still distal RCA 80%, needs PCI. We will plan for staged PCI tomorrow morning, to keep n.p.o. past m idnight. 2.Hypertension. Blood pressure is controlled. Continue current management. 3.Dyslipidemia. Continue statin. Lipitor 40 mg q.h.s. SR/MODL Voice ID: [id number] Report ID: [id number]
--- NOTE | 2022-05-07 02:35 | OP ---
Date of Procedure: 05/05/2022 Surgeon: JAMES LEWIS Procedure Performed: 1.Selective coronary angiogram. 2.PCI of critical proximal RCA stenosis, used 4 x 28 mm Synergy drug-eluting stent. Indication: Unstable angina. Access: Is the right radial artery, 6-[place], closed with TR band. Complications: None. Bleeding: Less than 20 mL. Anesthesia: Total sedation time was 55 minutes. Used fentanyl, Versed. Description Of Procedure: After risks, benefits, and alternatives were explained, patient agreed to proceed and signed informed consent. The patient was [facility] into [facility] cardiac catheterization [facility] and prepped and draped in usual sterile fashion. Then, I accessed right radial artery using ped iatric micropuncture kit, placed 6-[place] Slender sheath and took 5-[place] 4.0 catheter into th e aortic root, engaged left main and right coronary artery, took standard views, and then gave system ic heparin to assure its level above 250, gave Brilinta 180 and aspirin and took a 6-[place] 3DRC guid e with side holes, engaged the RCA and took short run-through wire, placed it in the distal RCA. Les ions were pre-dilated and expanded very well, and then placed a 4 x 28 mm Synergy drug-eluting stent to cover the proximal RCA stenosis with excellent results. Used at that time close to 150 cc of cont rast as the artery was heavily calcified and was difficult procedure. Decided to stop the procedure today and bring him back in 2 days to do the distal RCA as a staged procedure. Patient tolerated pro cedure very well. Then, we removed the wires and the catheter and the sheath, placed TR band with go od hemostasis. Findings: 1.Left main; very large with distal 40% stenosis, however, the lumen is still very large angiographi christiano. 2.LAD; large vessel with mid 50% and mid to distal 60% diagonal branches with luminal irregularities . 3.Left circumflex; the left circumflex is nondominant with no significant disease. 4.RCA: Large, dominant with proximal 99% and then diffuse 90% status post successful PCI as above, and then there is distal 80%, which will be staged at a later date. Conclusion: 1.Critical proximal right coronary artery stenosis, culprit for the unstable angina, status post suc cessful PCI. 2.Severe distal right coronary artery stenosis, which will be stented in 2 days. 3.Moderate coronary artery disease otherwise. Recommendation: Brilinta, aspirin, high-dose statin, and monitor for next 48 hours and bring him azeem k on for PCI of this RCA. SR/MODL Voice ID: [id number] Report ID: [id number]
[2022-05-07 05:50] LABS: Potassium 3.7 mmol/L (3.5-5.1)
[2022-05-07] MEDS: ASPIRIN EC 81 MG TAB PO SCH (07:42)
[2022-05-07] MEDS: TICAGRELOR 90 MG TABLET PO SCH (07:42)
[2022-05-07] MEDS: METOPROLOL TAR 25 MG TAB PO SCH (07:43)
[2022-05-07] MEDS: VENLAFAXINE HCL 75 MG TABLET PO SCH (07:43)
[2022-05-07] MEDS: lisinopriL 20 MG TAB PO SCH (07:44)
[2022-05-07] MEDS ORDERED: NA CHLORIDE 0.9% 500 ML ONE (10:13)
[2022-05-07] MEDS ORDERED: HEPA 1000U/500MLS 2,000 UNIT/1,000 ML BAG IV ONE ×2 (10:16)
[2022-05-07] MEDS ORDERED: LIDOCAINE 1% 20 ML MDV ONE (10:16)
[2022-05-07] MEDS ORDERED: FENTANYL CITR 100 MCG/2 ML ONE ×2 (10:20→10:56)
[2022-05-07] MEDS ORDERED: MIDAZOLAM HCL 2 MG/2 ML INJ ONE ×3 (10:20→11:30)
[2022-05-07] MEDS ORDERED: CLOPIDOGREL 75 MG TABLET ONE (10:21)
[2022-05-07] MEDS ORDERED: HEPARIN 10,000 UNIT/10 ML VIAL IV ONE (10:21)
[2022-05-07] MEDS ORDERED: ASPIRIN 325 MG TAB ONE (10:21)
[2022-05-07] MEDS ORDERED: ATROPINE SULF 1 MG/10 ML SYR IV ONE (10:21)
[2022-05-07] MEDS ORDERED: TICAGRELOR 90 MG TABLET PO ONE (10:21)
[2022-05-07 12:07] VITALS: O2SAT 99
[2022-05-07 12:41] VITALS: BP 137/63; TEMP 97.5
--- NOTE | 2022-05-07 15:14 | P.DS ---
Admission Date: 05/03/22 Discharge Date: 05/07/22 Disposition: ROUTINE DISCHARGE Discharge Condition: FAIR Reason for Admission: Unstable angina Consultations: CardiologyDr. Up - Problems (1) Hypertension Current Visit: Yes Status: Acute (2) CAD (coronary artery disease), [place] coronary artery Current Visit: Yes Status: Acute (3) Unstable angina Current Visit: Yes Status: Acute Brief History of Present Illness: 72-year-old gentleman with a history of hypertension presented to the emergency department with a complaint of chest pain and left shoulder pain which became progressively worse. He describes chest pain worse with exertion. No prior history of coronary artery disease. Patient is an active smoker. more prominent with exertion came here to the emergency room prior history of coronary artery disease. Troponin done in the emergency department was negative, checks x-ray unremarkable. EKG showed sinus rhythm with nonspecific ST-T changes. Patient was hospitalized for ACS rule out. Hospital Course: Patient admitted to the medical floor. Troponin trended negative. Patient was seen in consultation by cardiology who recommended nuclear stress test. Stress test showed reversible ischemia. Patient underwent cardiac catheterization and noted to have significant coronary artery disease-critical RCA occlusion-both proximal and distal. Patient underwent staged PCI, 2 stent placed. He was placed on aspirin, Brilinta, metoprolol and Lipitor Patient is currently asymptomatic with stable vitals. He is deemed stable for discharge per cardiology. Vital Signs/Physical Exam: Temp Pulse Resp BP Pulse Ox 97.5 F 65 16 137/63 99 05/07/22 12:15 05/07/22 12:15 05/07/22 12:15 05/07/22 12:15 05/07/22 12:15 General: Alert, In no apparent distress HEENT: Mucous membr. moist/pink Neck: JVD not distended Respiratory: Clear to auscultation bilaterally, Normal air movement Cardiovascular: No edema, Regular rate/rhythm, Normal S1 S2, No murmurs Gastrointestinal: Soft and benign, Non-distended, No tenderness Musculoskeletal: No swelling Integumentary: No rashes Neurological: Normal strength at 5/5 x4 extr Laboratory Data at Discharge: WBC 7.30 K/uL (4.3-10.9) 05/03/22 15:07 Hgb 13.7 g/dL (13.6-17.9) 05/03/22 15:07 Hct 41.1 % (39.6-49.0) 05/03/22 15:07 Plt Count 178 K/uL (152-406) 05/03/22 15:07 Sodium 140 mmol/L (136-145) 05/07/22 05:27 Potassium 3.7 mmol/L (3.5-5.1) 05/07/22 05:27 BUN 26 mg/dL (7-18) H 05/07/22 05:27 Creatinine 1.19 mg/dL (0.70-1.30) 05/07/22 05:27 Glucose 133 mg/dL (74-106) H 05/07/22 05:27 Magnesium 1.9 mg/dL (1.6-2.4) 05/03/22 15:07 Total Bilirubin 0.5 mg/dL (0.2-1.0) 05/03/22 15:07 AST 24 U/L (15-37) 05/03/22 15:07 ALT 25 U/L (16-61) 05/03/22 15:07 Alkaline Phosphatase 78 U/L (45-117) 05/03/22 15:07 Triglycerides 220 mg/dL (<150) H 05/03/22 17:38 Cholesterol 187 mg/dL (<200) 05/03/22 17:38 HDL Cholesterol 44 mg/dL (40-60) 05/03/22 17:38 Cholesterol/HDL Ratio 4.25 05/03/22 17:38 Home Medications: Lisinopril [Zestril] 20 mg PO DAILY 04/03/21 Morphine Ir [MSIR (Morphine Sulfate IR)*] 30 mg PO Q6HR 04/03/21 Trazodone [Desyrel*] 100 mg PO TIDP PRN 04/03/21 Venlafaxine HCl 75 mg PO DAILY 04/03/21 Aspirin [Aspirin EC] 81 mg PO DAILY #30 tab 05/07/22 Atorvastatin Calcium [Lipitor] 40 mg PO BEDTIME #30 tab 05/07/22 Metoprolol Tartrate [Lopressor*] 25 mg PO BID #60 tab 05/07/22 Ticagrelor [Brilinta*] 90 mg PO BID #60 tab 05/07/22 New Medications: Aspirin [Aspirin EC] 81 mg PO DAILY #30 tab Ticagrelor [Brilinta*] 90 mg PO BID #60 tab Atorvastatin Calcium [Lipitor] 40 mg PO BEDTIME #30 tab Metoprolol Tartrate [Lopressor*] 25 mg PO BID #60 tab Diet: AHA Activity: Ad zhou Followup: Juan Up MD [ACTIVE - CAN ADMIT] - (Within 4 weeks) Time spent managing pt's care (in minutes): 32
== END 2022-05-07 15:28 | disposition home or self-care (01) | DRG 247 ==
LOC: ER 14:54 → ERHOLD 17:09 → 4TH 19:57
PROVIDERS: ADMIT Internal Medicine Sleep Medicine; ATTEND Internal Medicine
PROC: 027034Z Dilation of Coronary Artery, One Artery with Drug-eluting Intraluminal Device, Percutaneous Approach (ICD-10-PCS; principal; 2022-05-05)
PROC: 4A023N7 Measurement of Cardiac Sampling and Pressure, Left Heart, Percutaneous Approach (ICD-10-PCS; 2022-05-05)
PROC: B2111ZZ Fluoroscopy of Multiple Coronary Arteries using Low Osmolar Contrast (ICD-10-PCS; 2022-05-05)
DX: I25.110 Atherosclerotic heart disease of native coronary artery with unstable angina pectoris (principal); I10 Essential (primary) hypertension; E78.5 Hyperlipidemia, unspecified; G89.29 Other chronic pain; I16.0 Hypertensive urgency; F17.210 Nicotine dependence, cigarettes, uncomplicated; Z79.82 Long term (current) use of aspirin; Z79.899 Other long term (current) drug therapy; Z20.822 Contact with and (suspected) exposure to COVID-19
CPT/HCPCS: 36415; 71045; 76937; 78452; 80048; 80061; 80076; 83735; 84484; 85025; 85347; 87811; 93005; 93017; 93306; 93454; 99285; A9500; C1725; C1760; C1893; C9600; G0269; J0360; J0461; J1650; J1940; J2001; J2250; J2785; J3010; J7040; Q9966; Q9967